=== PATIENT | male | born 1975 | race Caucasian/White ===

== ENCOUNTER 2018-08-10 22:52 | Emergency (ER) | payer SELFPAY ==
[~2018-08-10] VITALS: Ht 188 cm; Wt 95.7 kg
[2018-08-10 23:00] VITALS: BP 134/94
[2018-08-10] MEDS ORDERED: HYDR-3165 PO (23:19)
[2018-08-10] MEDS ORDERED: AMOX500C PO (23:21)
[2018-08-10] MEDS ORDERED: IBUP800T19 PO (23:21)
[2018-08-10] MEDS ORDERED: IBUPROFEN 800 MG TABLET. PO ONE (23:26)
[2018-08-10] MEDS: HYDROcodone/APAP 5/325MG 1 TAB TABLET PO ONE (23:32)
[2018-08-10] MEDS: AMOXICILLIN 250 MG CAPSULE PO ONE (23:32)
[2018-08-10] MEDS: IBUPROFEN 600 MG TABLET. PO ONE (23:32)
--- NOTE | 2018-08-10 23:34 | ED.ADGEN ---
Past History Past Medical History: No Pertinent History Past Surgical History: No Surgical History Alcohol Use: Occasionally Drug Use: None Adult General HPI HPI Patient is a 43 year old male who presents with dental pain. Patient states he has had a broken tooth in the left mandibular molar area for a couple of years. He states that he began having some pain and swelling about that tooth over the last 2-3 days. He does have a scheduled follow-up appointment with a dentist 3 days from now but he could not tolerate the pain this evening so he came to the ER. He does not have a fever. No difficulty swallowing. No additional complaints. Review of Systems Review of Systems Constitutional: Denies fever or chills Eyes: Denies change in visual acuity HENT: Denies nasal congestion or sore throat Respiratory: Denies cough or shortness of breath Integument: Denies rash or skin lesions Neurologic: Denies headache All other systems were reviewed and found to be within normal limits, except as documented in this note. Current Medications Current Medications Current Medications Medications (Trade) Dose Ordered Sig/Anabela Start Time Stop Time Status Last Admin Dose Admin Acetaminophen/ Hydrocodone Bitart (Lortab 5/325) 2 tab 1X ONCE 08/10/18 23:30 08/10/18 23:31 UNV Amoxicillin (Amoxil) 250 mg 1X ONCE 08/10/18 23:30 08/10/18 23:31 UNV Ibuprofen (Motrin) 800 mg STK-MED ONCE 08/10/18 23:26 08/10/18 23:28 DC Allergies Allergies Allergies Coded Allergies Type Severity Reaction Last Updated Verified No Known Drug Allergies 08/10/18 No Physical Exam Physical Exam Constitutional: Well developed, well nourished, no acute distress, non-toxic appearance HENT: Normocephalic, atraumatic, bilateral external ears normal, oropharynx moist, no oral exudates, down to the gumline. The tooth in question this evening is cavitatious and the local gingival tissue is erythematous but there is no fluctuance or drainable abscess present Neck: Normal range of motion Cardiovascular:Heart rate regular rhythm, no murmur Lungs & Thorax: Bilateral breath sounds clear to auscultation Skin: Warm, dry, no erythema, no rash Neurologic: Alert and oriented X 3 Psychologic: Affect normal Current Patient Data Vital Signs Vital Signs Date Time Temp Pulse Resp B/P (MAP) Pulse Ox O2 Delivery O2 Flow Rate FiO2 08/10/18 23:00 98.3 70 16 97 Room Air EKG EKG [] Radiology/Procedures Radiology/Procedures [] Course & Med Decision Making Course & Med Decision Making Pertinent Labs and Imaging studies reviewed. (See chart for details) Patient is evaluated in the emergency department for dental pain and cavities. No drainable abscess is present. In the ER, he is given ibuprofen, Brook, and amoxicillin. He is discharged home on the same and advised to follow-up with his primary dentist at his already scheduled appointment 3 days from now. Opiate precautions were discussed and all of the patient's questions were answered. He was agreeable to the plan of care. Final Impression Final Impression Dental [facility] Dental Pain Dragon Disclaimer Dragon Disclaimer This electronic medical record was generated, in whole or in part, using a voice recognition dictation system. GARRET ARMAS DO Aug 10, 2018 23:34
== END 2018-08-10 23:35 | disposition home or self-care (01) ==
LOC: ER 22:52
DX: K02.9 Dental caries, unspecified (principal)
CPT/HCPCS: 99284

== ENCOUNTER 2018-09-13 20:02 | Emergency (ER) | payer SELFPAY ==
[~2018-09-13] VITALS: Ht 188 cm; Wt 97.4 kg
[~2018-09-13 20:02] MED LIST: AMOX500C PO; HYDR-3165 PO; IBUP800T19 PO
[2018-09-13 20:15] VITALS: BP 132/81
--- NOTE | 2018-09-13 20:33 | ED.ADGEN ---
Past History Past Medical History: No Pertinent History Past Surgical History: Other Alcohol Use: Occasionally Drug Use: None Adult General Chief Complaint Chief Complaint groin pain HPI HPI 43 years old male presented to the emergency department with the right groin and hip pain after fall on ice patient stated I did the split. He walked into the emergency department is able to squat able to dress himself pain only on exertion no pain at rest Review of Systems Review of Systems Constitutional: Denies fever or chills [] Eyes: Denies change in visual acuity, redness, or eye pain [] HENT: Denies nasal congestion or sore throat [] Respiratory: Denies cough or shortness of breath [] Cardiovascular: No additional information not addressed in HPI [] GI: Denies abdominal pain, nausea, vomiting, bloody stools or diarrhea [] : Denies dysuria or hematuria [] Musculoskeletal: Denies back pain [] Integument: Denies rash or skin lesions [] Neurologic: Denies headache, focal weakness or sensory changes [] Endocrine: Denies polyuria or polydipsia [] All other systems were reviewed and found to be within normal limits, except as documented in this note. Allergies Allergies Allergies Coded Allergies Type Severity Reaction Last Updated Verified No Known Drug Allergies 08/10/18 No Physical Exam Physical Exam Constitutional: Well developed, well nourished, no acute distress, non-toxic appearance. [] HENT: Normocephalic, atraumatic, bilateral external ears normal, oropharynx moist, no oral exudates, nose normal. [] Eyes: PERRLA, EOMI, conjunctiva normal, no discharge. [] Neck: Normal range of motion, no tenderness, supple, no stridor. [] Cardiovascular:Heart rate regular rhythm, no murmur [] Lungs & Thorax: Bilateral breath sounds clear to auscultation [] Abdomen: Bowel sounds normal, soft, no tenderness, no masses, no pulsatile masses. [] Skin: Warm, dry, no erythema, no rash. [] Back: No tenderness, no CVA tenderness. [] Extremities: No tenderness, no cyanosis, no clubbing, ROM intact, no edema. [] Neurologic: Alert and oriented X 3, normal motor function, normal sensory function, no focal deficits noted. [] Psychologic: Affect normal, judgement normal, mood normal. [] Current Patient Data Vital Signs Vital Signs Date Time Temp Pulse Resp B/P (MAP) Pulse Ox O2 Delivery O2 Flow Rate FiO2 09/13/18 20:15 98.1 71 18 99 Room Air EKG EKG [] Radiology/Procedures Radiology/Procedures [] Course & Med Decision Making Course & Med Decision Making Pertinent Labs and Imaging studies reviewed. (See chart for details) [] Final Impression Final Impression [] Problems: (1) Hip strain Qualifiers: Qualified Codes: S76.011A - Strain of muscle, fascia and tendon of right hip , initial encounter Dragon Disclaimer Dragon Disclaimer This electronic medical record was generated, in whole or in part, using a voice recognition dictation system. WINSTON ISAAC MD Sep 13, 2018 20:33
--- NOTE | 2018-09-13 21:02 | RAD ---
Right hip 2 views 09/13/2018. Reason for exam: Pain after injury. No fracture or dislocation is seen. There is mild joint narrowing. There is some marginal ossified formation at the proximal humeral neck. IMPRESSION: No acute abnormality. Electronically signed by: Paul Carl Jr., MD (09/13/2018 8:59 PM) [facility]
== END 2018-09-13 21:01 | disposition home or self-care (01) ==
LOC: ER 20:02
DX: S76.011A Strain of muscle, fascia and tendon of right hip, initial encounter (principal); W00.0XXA Fall on same level due to ice and snow, initial encounter; Y93.89 Activity, other specified; Y92.89 Other specified places as the place of occurrence of the external cause; Y99.8 Other external cause status
CPT/HCPCS: 73502; 99283

== ENCOUNTER 2021-02-24 04:32 | Emergency (ER) | payer OTHER ==
[~2021-02-24] VITALS: Ht 188 cm; Wt 101.0 kg
--- NOTE | 2021-02-24 04:41 | PHYS DOC ---
Past History Past Medical History: No Pertinent History, Arthritis, GERD, Hypertension (TOM SLAUGHTER MD) Past Surgical History: Other Past Surgical History Hx. EGD-esophageal dilation for stricture and GERD 3 to 4 years ago in [facility] (TOM SLAUGHTER MD) Alcohol Use: Occasionally Drug Use: None (TOM SLAUGHTER MD) General Adult HPI: HPI: "..I got always bad... heart burn.. I usually take two chewable Siena-Jay tabs and that fixes it... Did not fix it tonight. :" Patient is a 46 year old male who presents with above hx and complaints of epigastric chest pain. States pain is been present all night. Patient currently rates pain a 6 out of 10. It is nonradiating. Patient reports almost nightly episodes of reflux and GERD complaints. Patient normally takes Siena-Jay for his pain. Patient has consumed some beer tonight. Patient denies any trauma. No recent travel but can see the area. 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 Reportedly was in contact of a couple people that had Covid. Post exposure Pt. was tested for Covid afterwards and remained negative. Patient did get Moderna covid the vaccination and July and September. Patient normally follows with [facility] for care. Patient has had similar symptoms in the past and has previous EGD with esophageal dilation in [facility] approximate 3 to 4 years ago. Patient not on any antacids or gastritis meds currently . Patient has been drinking beer continually tonight. (TOM SLAUGHTER MD) Review of Systems: Review of Systems: Constitutional: Denies fever or chills Eyes: Denies change in visual acuity HENT: Denies nasal congestion or sore throat Respiratory: Denies cough or shortness of breath Cardiovascular: Complains of epigastric chest pain GI: Complains of epigastric abdominal pain, nausea,. Denies vomiting, bloody stools or diarrhea : Denies dysuria Musculoskeletal: Denies back pain or joint pain Integument: Denies rash Neurologic: Denies headache, focal weakness or sensory changes Endocrine: Denies polyuria or polydipsia Lymphatic: Denies swollen glands Psychiatric: Denies depression or anxiety (TOM SLAUGHTER MD) Family History: Family History: Noncontributory presentation (TOM SLAUGHTER MD) Current Medications: Current Meds: See nursing for home meds (TOM SLAUGHTER MD) Allergies: Allergies: Allergies Coded Allergies Type Severity Reaction Last Updated Verified No Known Drug Allergies 08/10/18 No (TOM SLAUGHTER MD) Physical Exam: PE: Constitutional: Moderate acute distress, intoxicated and appearance. [] HENT: Normocephalic, atraumatic, bilateral external ears normal, oropharynx mulugeta st, no oral exudates, nose normal. [] Eyes: PERRLA, EOMI, conjunctiva normal, no discharge. [] Neck: Normal range of motion, no tenderness, supple, no stridor. [] Cardiovascular: Tachycardia heart rate regular rhythm, no murmur [] Lungs & Thorax: Bilateral breath sounds to apex with few scattered wheezes auscultation [] Abdomen: Bowel sounds normal, soft, gastric tenderness, no masses, no pulsatile masses. Mild rectal exam at this time. No history of dark tarry stools. Skin: Warm, dry, no erythema, no rash. [] Back: No tenderness, no CVA tenderness. [] Extremities: No tenderness, no cyanosis, no clubbing, ROM intact, no edema. [] Neurologic: Alert and oriented X 3, normal motor function, normal sensory function, no focal deficits noted. No cording appreciated in legs. Psychologic: Affect anxious,, judgement normal, mood normal. [] (TOM SLAUGHTER MD) EKG: EKG: My interpretation EKG shows sinus tachycardia 101 bpm. There is some low voltage findings. No findings acute STEMI of contralateral changes. Time of EKG is 437 hours [] (TOM SLAUGHTER MD) Radiology/Procedures: Radiology/Procedures: [][address] [place] [id number] [place] [address] IMAGING REPORT Signed PATIENT: LALO MUÑIZ ACCOUNT: [id number] : 1975 LOCATION: ER AGE: 46 SEX: M EXAM STATUS: REG ER ORD. PHYSICIAN: TOM SLAUGHTER MD REASON: pain PROCEDURE: ABDOMEN SUPINE & UPRIGHT Study: XR ABDOMEN 2V Indication: Pain. Comparison: None. Findings: Nonobstructive bowel gas pattern. No pneumoperitoneum. Progressive arthrosis at the right hip in the setting of avascular necrosis. The partially imaged lung bases are unremarkable. Impression: 1. Nonobstructive bowel gas pattern. 2. Progressive right hip arthrosis from the 09/13/2018 comparison on a background of avascular necrosis. Electronically signed by: IZA SALCIDO MD (02/24/2021 5:55 AM) [facility] DICTATED AND SIGNED BY: IZA SALCIDO MD DATE: 02/24/2153 CC: TOM SLAUGHTER MD; YECENIA BEDOYA ~MTH0 IMAGING REPORT Signed PATIENT: LALO MUÑIZ ACCOUNT: [id number] : 1975 LOCATION: ER AGE: 46 SEX: M EXAM STATUS: REG ER ORD. PHYSICIAN: TOM SLAUGHTER MD REASON: pain PROCEDURE: CHEST PA & LATERAL Study: XR CHEST 2V Indication: Pain. Comparison: None. Findings: The cardiomediastinal silhouette and asad are within normal limits. No localized airspace opacity, pleural effusion or pneumothorax. Impression: No acute radiographic abnormality of the chest. Electronically signed by: IZA SALCIDO MD (02/24/2021 5:53 AM) [facility] DICTATED AND SIGNED BY: IZA SALCIDO MD DATE: 02/24/21552 CC: TOM SLAUGHTER MD; YECENIA BEDOYA ~MTH0 0 (TOM SLAUGTHER MD) Heart Score: C/O Chest Pain: Yes HEART Score for Chest Pain: HEART Score for Chest Pain Response (Comments) Value History Slighlty/Non-Suspicious 0 ECG Normal 0 Age >45 - < 65 1 Risk Factors 1 or 2 Risk Factors 1 Troponin < Normal Limit 0 Total 2 Risk Factors: Risk Factors: DM, Current or recent (<one month) smoker, HTN, HLP, family history of CAD, obesity. Risk Scores: Score 0 - 3: 2.5% MACE over next 6 weeks - Discharge Home Score 4 - 6: 20.3% MACE over next 6 weeks - Admit for Clinical Observation Score 7 - 10: 72.7% MACE over next 6 weeks - Early Invasive Strategies (TOM SLAUGHTER MD) Course & Med Decision Making: Course & Med Decision Making Pertinent Labs and Imaging studies reviewed. (See chart for details) Suspect patient's pain is primarily GERD and esophageal reflux. Recommend patient follow-up with GI and get a repeat EGD. Avoid NSAIDs. Take Pepcid 20 mg twice a day. Follow-up primary care. Return for any concerns. Awaiting second troponin at shift change. Dr. Carr will make disposition if second troponin is abnormal. Impression: 1. Chest pain epigastric- (Suspect - GERD) 2. Alcohol intoxication =115 3. Hypokalemia 3.1 4. Moderna COVID- Vaccination- completed September 2020 [] (TOM SLAUGHTER MD) Course & Med Decision Making The patient's repeat troponin is negative. He is stable for discharge at this time. (JHONATAN CARR DO) Dragon Disclaimer: Dragon Disclaimer: This electronic medical record was generated, in whole or in part, using a voice recognition dictation system. (TOM SLAUGHTER MD) Departure Departure: Impression: Primary Impression: Chest pain Qualified Codes: R07.9 - Chest pain, unspecified Disposition: HOME / SELF CARE / HOMELESS Condition: STABLE Referrals: PCP,NO (PCP) Patient Instructions: Chest Pain (Nonspecific), Juyc-sw-Ztco Scripts Famotidine (PEPCID) 20 Mg Tablet 20 MG PO BID for gerd for 30 Days, #60 TAB Prov: TOM SLAUGHTER MD 02/24/21 Dragon Disclaimer This chart was dictated in whole or in part using Voice Recognition software in a busy, high-work load, and often noisy Emergency Department environment. It may contain unintended and wholly unrecognized errors or omissions. (TOM SLAUGHTER MD) TOM SLAUGHTER MD Feb 24, 2021 04:41 JHONATAN CARR DO Feb 24, 2021 07:58
[2021-02-24] MEDS ORDERED: MAGNESIUM HYDROXIDE 2,400 MG/30 ML ORAL.SUSP. PO ONE (05:00)
[2021-02-24] MEDS ORDERED: IV RINGERS SOLUTION,LACTATED 1,000 ML IV SCH (05:00)
[2021-02-24] MEDS ORDERED: FAMOTIDINE 20 MG/2 ML VIAL IVP ONE (05:00)
[2021-02-24] MEDS ORDERED: ASPIRIN CHEWABLE 81 MG TABLET. PO ONE (05:00)
[2021-02-24 05:10] LABS: BASO % 1 % (0-3); EOS % 0 % (0-3); HEMATOCRIT 47.1 % (39.0-53.0); HEMOGLOBIN 16.1 g/dL (13.0-17.5); LYMPH % 28 % (24-48); MEAN CORPUSCULAR HEMOGLOBIN 33 pg (25-35); MEAN CORPUSCULAR HGB CONC 34 g/dL (31-37); MEAN CORPUSCULAR VOLUME 95 fL (79-100); MONO # 0.4 x10^3/uL (0.0-1.1); MONO % 5 % (0-9); NEUT # 4.9 x10^3uL (1.8-7.7); NEUT % 67 % (31-73); PLATELET COUNT 166 x10^3/uL (140-400); RED BLOOD COUNT 4.93 x10^6/uL (4.30-5.70); WHITE BLOOD COUNT 7.3 x10^3/uL (4.0-11.0)
[2021-02-24 05:19] LABS: CALCIUM 8.4 mg/dL (8.5-10.1); GFR 80.4; POTASSIUM 3.1 mmol/L (3.5-5.1)
[2021-02-24 05:32] LABS: ALBUMIN 3.8 g/dL (3.4-5.0); DIRECT BILIRUBIN 0.3 mg/dL (0.0-0.2); MAGNESIUM 2.2 mg/dL (1.8-2.4); TOTAL BILIRUBIN 1.3 mg/dL (0.2-1.0); TOTAL PROTEIN 7.1 g/dL (6.4-8.2)
--- NOTE | 2021-02-24 05:55 | RAD ---
Study: XR CHEST 2V Indication: Pain. Comparison: None. Findings: The cardiomediastinal silhouette and asad are within normal limits. No localized airspace opacity, pl eural effusion or pneumothorax. Impression: No acute radiographic abnormality of the chest. Electronically signed by: IZA SALCIDO MD (02/24/2021 5:53 AM) [facility]
--- NOTE | 2021-02-24 05:58 | RAD ---
Study: XR ABDOMEN 2V Indication: Pain. Comparison: None. Findings: Nonobstructive bowel gas pattern. No pneumoperitoneum. Progressive arthrosis at the right hip in the setting of avascular necrosis. The partially imaged lung bases are unremarkable. Impression: 1. Nonobstructive bowel gas pattern. 2. Progressive right hip arthrosis from the 09/13/2018 comparison on a background of avascular necrosis . Electronically signed by: IZA SALCIDO MD (02/24/2021 5:55 AM) [facility]
[2021-02-24] MEDS ORDERED: POTASSIUM CHLORIDE 20 MEQ TABLET.ER. PO ONE (06:00)
[2021-02-24] MEDS ORDERED: FAMO-63 PO (06:21)
--- NOTE | 2021-02-24 06:27 | EKG ---
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
[2021-02-24 07:54] LABS: BARBITURATES NEG (NEG); BENZODIAZEPINES NEG (NEG); CANNABINOIDS NEG (NEG); COCAINE NEG (NEG); METHADONE NEG (NEG); OPIATES NEG (NEG); PHENCYCLIDINE NEG (NEG)
[2021-02-24 07:59] LABS: AMPHETAMINE/METHAMPHETAMINE NEG (NEG)
[2021-02-24 08:10] VITALS: BP 137/80
[2021-02-24 08:16] LABS: BACTERIA,URINE 0 /HPF (0-FEW); BILIRUBIN,URINE NEG (NEG); CLARITY,URINE CLEAR; COLOR,URINE YELLOW; GLUCOSE,URINE NEG (NEG); NITRITE,URINE NEG (NEG); RBC,URINE 0 /HPF (0-2); SQUAMOUS EPITHELIAL CELL,UR OCC /LPF
== END 2021-02-24 08:10 | disposition home or self-care (01) ==
LOC: ER 04:32
DX: R07.89 Other chest pain (principal); E87.6 Hypokalemia; F10.129 Alcohol abuse with intoxication, unspecified; M19.90 Unspecified osteoarthritis, unspecified site; K21.9 Gastro-esophageal reflux disease without esophagitis; I10 Essential (primary) hypertension; Z20.822 Contact with and (suspected) exposure to COVID-19; Y90.5 Blood alcohol level of 100-119 mg/100 ml
CPT/HCPCS: 36415; 71046; 74019; 80048; 80076; 80307; 81001; 82550; 83690; 83735; 83880; 84443; 84484; 85025; 85379; 85610; 85730; 93005; 96361; 96374; 99285; C9803; G0480; J3490; J7120; U0003

== ENCOUNTER 2021-04-15 23:17 | Emergency (ER) | payer OTHER ==
[~2021-04-15] VITALS: Ht 177.8 cm; Wt 74.2 kg
[~2021-04-15 23:17] MED LIST changes: +FAMO-63 PO
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
[2021-04-16 00:36] LABS: BASO % 1 % (0-3); EOS % 1 % (0-3); HEMOGLOBIN 16.7 g/dL (13.0-17.5); LYMPH # 2.4 x10^3/uL (1.0-4.8); LYMPH % 36 % (24-48); MEAN CORPUSCULAR HEMOGLOBIN 33 pg (25-35); MEAN CORPUSCULAR HGB CONC 34 g/dL (31-37); MEAN CORPUSCULAR VOLUME 96 fL (79-100); MONO # 0.5 x10^3/uL (0.0-1.1); MONO % 7 % (0-9); NEUT # 3.9 x10^3uL (1.8-7.7); NEUT % 57 % (31-73); PLATELET COUNT 153 x10^3/uL (140-400); RED BLOOD COUNT 5.11 x10^6/uL (4.30-5.70); RED CELL DISTRIBUTION WIDTH 13.3 % (11.5-14.5); WHITE BLOOD COUNT 6.8 x10^3/uL (4.0-11.0)
--- NOTE | 2021-04-16 00:37 | EKG ---
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
[2021-04-16 00:44] LABS: CALCIUM 8.5 mg/dL (8.5-10.1); GFR 80.4; POTASSIUM 3.5 mmol/L (3.5-5.1)
[2021-04-16 00:50] LABS: ALBUMIN 3.8 g/dL (3.4-5.0); ALBUMIN/GLOBULIN RATIO 1.2 (1.0-1.7); TOTAL BILIRUBIN 1.3 mg/dL (0.2-1.0); TOTAL PROTEIN 7.1 g/dL (6.4-8.2)
[2021-04-16 00:51] LABS: ACETAMIN < 2.0 mcg/mL (10-30); ETHANOL 186 mg/dL (0-10)
[2021-04-16 00:52] LABS: SALIC < 2.8 mg/dL (2.8-20.0)
[2021-04-16 09:31] LABS: AMPHETAMINE/METHAMPHETAMINE NEG (NEG); BARBITURATES NEG (NEG); BENZODIAZEPINES NEG (NEG); CANNABINOIDS NEG (NEG); COCAINE NEG (NEG); METHADONE NEG (NEG); OPIATES NEG (NEG); PHENCYCLIDINE NEG (NEG)
[2021-04-16 09:52] LABS: BACTERIA,URINE 0 /HPF (0-FEW); BILIRUBIN,URINE NEG (NEG); CLARITY,URINE CLEAR; COLOR,URINE YELLOW; GLUCOSE,URINE NEG (NEG); NITRITE,URINE NEG (NEG); RBC,URINE OCC /HPF (0-2); SQUAMOUS EPITHELIAL CELL,UR FEW /LPF; UROBILINOGEN,URINE 0.2 mg/dL (0.2 mg/dL)
[2021-04-16 12:00] VITALS: BP 132/82
== END 2021-04-16 12:05 ==
LOC: ER 23:17
DX: R45.851 Suicidal ideations (principal); M19.90 Unspecified osteoarthritis, unspecified site; K21.9 Gastro-esophageal reflux disease without esophagitis; I10 Essential (primary) hypertension; Z20.822 Contact with and (suspected) exposure to COVID-19
CPT/HCPCS: 36415; 80053; 80307; 80329; 81001; 83735; 85025; 87426; 93005; 99285; C9803; G0480; U0003